=== PATIENT | male | born 1950 | race Caucasian/White ===

== ENCOUNTER 2022-01-19 12:30 | Inpatient (IN) | payer MEDICARE, BC, SELFPAY ==
[2022-01-19 13:20] VITALS: BP 127/68; PULSE 68; RESP 17; TEMP 36.2; O2SAT 96; BMI 26.6
[2022-01-19 15:30] VITALS: O2SAT 99
--- NOTE | 2022-01-19 18:03 | NURSING ---
Alert and oriented but has some delay in expressing needs. Patient requested to go to the bathroom and once in the bathroom with this nurse, patient reported, I do not have to go to the bathroom. Daughter present on admit, both parties are aware of all rehab routines.
[2022-01-19 19:48] VITALS: BP 122/74; PULSE 70; RESP 17; TEMP 36.6; O2SAT 98
[2022-01-19] MEDS: Senna/Docusate Sodium 1 Tablet 2 TABLET PO (20:40)
[2022-01-19] MEDS: Acetaminophen 500 MG Tablet PO (21:34)
[2022-01-20] MEDS: Acetaminophen 500 MG Tablet PO (06:17)
[2022-01-20] MEDS: Loratadine 10 MG Tablet PO (08:00)
[2022-01-20] MEDS: Senna/Docusate Sodium 1 Tablet 2 TABLET PO ×2 (08:00→21:02)
[2022-01-20] MEDS: Fluticasone 0.05% 1 SPRAY NASAL.SRY NASAL (08:00)
[2022-01-20] MEDS: Psyllium 1 PACKET PO (08:01)
[2022-01-20] MEDS: Lisinopril 5 MG Tablet PO (08:02)
[2022-01-20 08:52] VITALS: BP 112/63; PULSE 65; RESP 20; TEMP 36.5; O2SAT 94
[2022-01-20 08:52] LABS: Hematocrit 46.2 % (40-54); Hemoglobin 15.8 g/dL (13.0-16.5); Mean Corp Hgb Conc 34.2 g/dL (32-36); Mean Corpuscular Hgb 29.1 pg (27.0-32.0); Mean Corpuscular Volume 85.1 fL (80-94); Mean Platelet Vol. 10.6 fl (6.2-12.0); Platelet Count 198 K/mm3 (150-450); RBC Distribution Width CV 12.1 % (11.6-14.6); RBC Distribution Width SD 37.2 fl (35.1-43.9); Red Blood Count 5.43 M/mm3 (4.6-6.2)
[2022-01-20 09:00] VITALS: O2SAT 94
--- NOTE | 2022-01-20 09:03 | PCM.HP.STD ---
[facility] - General General Date of Admission: 01/19/22 Date of Service: 01/20/22 Chief Complaint: Debility due to intracranial hemorrhage. HPI Narrative GABRIELLA VOGT, is a 71 YO M with a PMH of cysts, hypertension, irritable bowel syndrome, asbestos exposure, allergic rhinitis and stroke (ischemic 2018) who presented to [facility] on 01/14/22 complaining of vision changes and an unsteady gait when he awoke that morning. He felt fine when going to bed the previous night. He woke up and noticed his vision was off but, he went back to sleep. Noncontrast CT of the brain showed acute intraventricular hemorrhage partially opacifying the right lateral ventricle and nearly completely opacifying the third ventricle, cerebral aqueduct and fourth ventricle. There was also thought to be a small L thalamus parenchymal hemorrhage. He was transported to [facility] where his NIHSS was 0 at presentation. Visual disturbances included a loss of vertical peripheral vision, diplopia and inability to look up or down. He later developed difficulty word finding and a vertical gaze palsy. He was taking and ASA at home for previous ischemic stroke in 2018. No surgery was required. He was evaluated by PT/OT and a recommendation was made for acute rehab. He was transferred to the acute inpt rehab unit at [facility] on 01/19/22 for 3 hours of therapy daily to restor function/independence at or neat his prior level of function. ECHO showed a normal LV with an EF of 62 +/- 5. There was no LVH and no diastolic dysfunction. There was no significant valvular disease. The aorta was dilated with a maximal dimension of 4.4 cm. MRI of the brain done on 01/17/22 showed subacute left medial thalamic infarct with intraparenchymal hemorrhage and intraventricular extension. There was no hydrocephalus. Does not get Flu shots and he has never had a COVID vaccine. We discussed why a COVID vaccine is telly necessary in the elderly. [facility] Medical History (Updated 01/20/22 @ 10:[address] Jonelle Bernard DO) Allergic rhinitis Former smoker Hypertension Irritable bowel Nephrolithiasis Stroke/cerebrovascular accident Home Medications acetaminophen 500 mg tablet 500 mg PO Q8H PRN Pain 01/19/22 [History Last Taken Unknown] aspirin 325 mg tablet 325 mg PO DAILY blood thinner 01/19/22 [History Last Taken Unknown] budesonide 32 mcg/actuation nasal spray 1 spray intranasal DAILY congestion 01/19/22 [History Last Taken Unknown] diclofenac sodium 1 % topical gel 1 ea topical BID pain 01/19/22 [History Last Taken Unknown] fexofenadine 180 mg tablet 180 mg PO DAILY allergies 01/19/22 [History Last Taken Unknown] lisinopril 5 mg tablet 5 mg PO DAILY bp 01/19/22 [History Last Taken Unknown] psyllium 1 packet PO DAILY constipation 01/19/22 [History Last Taken Unknown] vitamin B complex 1 tab PO DAILY vitamin 01/19/22 [History Last Taken Unknown] Allergy/AdvReac Type Severity Reaction Status Date / Time Environmental Allergies: Allergy Other Verified 01/19/22 13:27 Uncoded [seasonal] Surgical History (Updated 01/20/22 @ 09:[address] Jonelle Bernard DO) History of arthroscopy of left knee History of lithotripsy Surgical History no surgical history Social History (Updated 01/20/22 @ 10:[address] Jonelle Bernard DO) household members: other details: He lives alone housing: house number of children: 4 current occupational status: retired current occupation: pipelines laborer prior to skilled nursing Smoking Status: Former smoker how long ago did patient quit smokin years ago alcohol intake: never details: denies alcohol use substance use type: does not use ROS Constitutional Constitutional: Reports difficulty sleeping, headache(s) and other Details: Not eating well because he does not like the food. He has bags of candy in his room. ; Denies anorexia, change in weight, chills, fatigue, fever(s), night sweats or weakness Eyes Eyes: Reports change in vision and diplopia; Denies blurry vision, discharge from eye(s), eye pain or loss of vision ENT HEENT: Reports headache(s); Denies abnormal hearing, dysphagia, hearing loss, nasal congestion or sore throat Cardiovascular Cardiovascular: Reports numbness in extremities and other Details: He has decreased sensation of the R face, arm and leg since stroke in 2018 ; Denies chest pain, dyspnea on exertion, edema, lightheadedness, orthopnea, palpitations, paroxysmal nocturnal dyspnea or syncope Respiratory/Chest Respiratory/Chest: Denies cough, dyspnea, shortness of breath at rest, shortness of breath with exertion or wheezing Gastrointestinal Gastrointestinal: Reports nausea; Denies abdominal pain, constipation, diarrhea, dyspepsia, hematemesis, hematochezia or vomiting Genitourinary Genitourinary: Denies dysuria, hematuria, nocturia, urinary frequency, urinary hesitancy, urinary incontinence or urinary urgency Musculoskeletal Musculoskeletal: Denies back pain, joint pain, joint swelling or neck pain Integumentary Integumentary: Reports alopecia; Denies jaundice Neurologic Neurologic: Reports headache(s) and paresthesias; Denies confusion, disequilibrium, dizziness, focal weakness, seizures, tremor(s) or vertigo Psychiatric Psychiatric: Denies anxiety, depression, homicidal ideation or suicidal ideation Endocrine Endocrinology: Denies change in body appearance, polydipsia or polyuria Hematologic/Lymphatic Hematologic/Lymphatic: Denies easy bleeding, easy bruising or lymphadenopathy Allergic/Immunologic Allergic/Immunologic: Reports rhinitis; Denies eczemia or asthma Vital Signs Vital Signs Vital Signs: 01/19/22 13:20 01/19/22 15:30 01/19/22 19:48 Temperature 97.2 F L 97.9 F Temperature Source Oral Temporal Pulse Rate 68 70 Respiratory Rate 17 17 Blood Pressure 127/68 H 122/74 H Blood Pressure Mean 87 90 Blood Pressure Source Monitor Monitor Blood Pressure Position Semi-Fowlers Sitting Blood Pressure Location Right Arm Left Arm Pulse Ox 96 99 98 Oxygen Delivery Method Room Air Room Air Room Air 01/20/22 08:52 Temperature 97.7 F L Temperature Source Temporal Pulse Rate 65 Respiratory Rate 20 H Blood Pressure 112/63 Blood Pressure Mean 79 Blood Pressure Source Monitor Blood Pressure Position Supine Blood Pressure Location Right Arm Pulse Ox 94 Oxygen Delivery Method Room Air Weight Weight: 186 lb Body Mass Index (BMI) 26.6 Physical Exam Const alert and oriented x3 Constitutional Narrative: He is keeping the R eye closed and squinting.....he tells me that his eyes are mildly sensitive to sunlight and he is sitting by the window. He denies diplopia at the present time and tells me that it comes and goes. General Appearance: cooperative and well kempt HEENT normocephalic, head/scalp atraumatic, hearing grossly normal bilaterally and moist oral mucous membranes Face and Sinus: Negative for flattened naso-labial fold Eyes PERRL, EOMs intact bilaterally, conjunctivae normal, no scleral icterus and normal visual you by confrontation Neck supple, no JVD, nodes and no carotid bruits Chest Chest: symmetrical chest wall rise Resp normal respiratory effort, normal air movement, no use of accessory muscles and clear to auscultation bilaterally Effort and Inspection: able to speak in complete sentences Cardio regular rate, regular rhythm, S1 normal heart sound, S2 normal heart sound, no murmurs, no rub and no gallops Cardio Narrative: No ectopy GI normal to inspection, nondistended, normoactive bowel sounds, soft to palpation and non-tender GI Narrative: No guarding with palpation Extremity no clubbing, cyanosis or edema, no calf tenderness and no pedal edema Skin General Skin Exam: no breakdown Rashes: no rashes Neuro oriented x3, CN's II-XII intact bilaterally and moves all extremities Neuro Narrative: Decreased sensation on the R side since stroke in 2018 Psych mental status grossly normal, cooperative, denies hallucinations, denies homicidal ideation and denies suicidal ideation Appearance: grossly normal Attitude: calm Activity / Motor Behavior: appropriate eye contact Results Lab / Micro Data Result Diagrams: 01/20/22 08:30 01/20/22 08:30 Labs: Laboratory Results - last 24 hr 01/20/22 08:30: WBC 6.0, RBC 5.43, Hgb 15.8, Hct 46.2, MCV 85.1, MCH 29.1, MCHC 34.2, RDW Std Deviation 37.2, RDW Coeff of Analia 12.1, Plt Count 198, MPV 10.6 Assessment & Plan Assessment/Plan (1) Debility: (2) Cerebrovascular accident (CVA) of left thalamus: (3) Intracerebral hemorrhage, nontraumatic: (4) Hyponatremia: (5) Cephalgia: PLAN: Only when lying down flat. (6) Diplopia: (7) Insomnia: PLAN: Plan PLAN PT for gait stability OT for ADL's ST for evaluation Analgesics as needed Bowel protocol Fall precautions Assess for Anxiety/Depression GI prophylaxis -not necessary at this time. No history of peptic ulcer disease and he denies epigastric pain. DVT prophylaxis with Tello and ANGEL jenkins Follow up with Dr. Sumeet Serrano (PCP) and neurology following DC from IP Rehab AM lab including CMP, CBC, Mag and Phos - personally reviewed. will add a lipid panel Elevate the HOB at night to 30 degrees. Gabapentin 200 mg at 9 PM Unit Exclusion This patient is an acute care inpatient being housed in the excluded unit because of capacity issues related to the disaster or emergency.: Yes Charges/Coding Visit Charges Inpatient E&M: 91856 Init Hosp L2
[2022-01-20 09:16] LABS: ALB/GLOB Ratio 0.9 RATIO (0.9-2.4); AST(SGOT) 16 U/L (15-37); Alanine Aminotransfer ALT/SGPT 16 U/L (16-61); Albumin, Serum 3.7 g/dL (3.2-5.0); Alkaline Phosphatase 60 U/L (45-117); Anion Gap 8 (5-15); BUN 19 mg/dL (7-18); BUN/Creat Ratio 19.1 RATIO (10-20); Chloride 99 mmol/L (98-107); EST Glomerular Filtration Rate 78 mL/min (>60); Est Glom Filt Rate - Afr Amer 95 mL/min (>60); Estimated Creatinine Clearance 68.94 ml/min; Glucose 125 mg/dL (74-106); Phosphorus 3.1 mg/dL (2.5-4.9); Potassium 3.8 mmol/L (3.5-5.1); Protein, Total 7.7 g/dL (6.4-8.2); Sodium Level 135 mmol/L (136-145)
--- NOTE | 2022-01-20 09:43 | PCM.RU.PYE ---
Admission Information Primary Diagnosis:: Debility secondary to left thalamic intraparenchymal hemorrhage with extension into the ventricular system. Risk of Complications DVT: ANGEL Hose and Sequential Compression Device Bleeding: Monitor Lab Values, Nursing to Teach Precautions for anti-coagulation therapy., Wound, if applicable, to be assessed every shift. and Stroke patients assessed for lethargy or change in status. Infection: Clinical Staff to Monitor for S/S of infection: and S/S of infection include fever, redness, warmth, etc. Urinary Tract Infection: Monitor for frequency, burning, discomfort, or incontinence. and Nursing will obtain urine sample for urinalysis and C&S when ordered. Aspiration: Clinical staff will monitor for coughing, drooling, congestion., Speech will evaluate swallowing and dsyphasia. and Nursing will monitor patient swallowing during meals. Falls: Patient will be evaluated for Fall Precautions and Patient will be placed on Fall Precautions as indicated per protocol. Skin Breakdown: Nursing will assess skin daily using assessment tool. and Nursing will place on Skin Breakdown Precautions as indicated. Pain: Clinical staff will assess patient's pain level per protocol., Medications will be given, if needed, and the pain level reassessed. and Other methods: Massage, distraction, decrease stimulus, etc. used PRN. Plan of Care Patient requires physician specializing in physical medicine and rehab oversight to provide close medical supervision of rehab issues including: Pain Management, Sleep Problems, Bowel and Bladder, Medical and co-morbidity Management, DVT prophylaxis, Rehabilitation Leadership and Coordination of treatment team Patient needs Physical Therapy: For a minimum of 1 hour and At least 5 out of 7 days Patient needs Physical Therapy to improve:: Mobility, Strengthening, Transfers, Stretching, ROM, Endurance, Stairs, Gait and Balance Patient needs Occupational Therapy: For a minimum of 1 hour and At least 5 out of 7 days Patient needs Occupational Therapy to improve ADL's incl.: Eating, Grooming, Bathing, Dressing, Toileting, Toilet transfers, Community Reintegration, Higher functioning activities, Household tasks, Adaptive Equipment, Splinting and Other activities as determined Patient requires speech therapy: For a minimum of 1 hour and At least 5 out of 7 days Patient requires speech therapy for: Swallowing, Cognition, Language Skills and Compensatory Strategies Patient requires 24/ Rehabilitation Nursing for: Pain Issues, Identifying and preventing risk factors, Monitoring and reporting current medical conditions, Assisting with ambulation, transfer, and all ADL's, Teaching patients about disease process and medications, Family teaching, Providing safe environment, Bowel and Bladder Issues, Skin integrity and Medication Management Patient needs [employer]/ Case Management for: Discharge Planning, Arranging Home Equipment or Services and Family Interventions Patient needs Dietary and Nutrition Services for: Adequate Nutrition, Nutritional Supplements and Nutritional Education Goals Patient will remain: free from falls and or injury at time of discharge. Patient will perform bed mobility at: MOD I level of assist. Patient will complete transfers from bed to chair at: MOD I level of assist. Patient will ambulate: - (350 feet without an assistive device at mod I) Patient will complete upper body dressing at: MOD I level of assist. Patient will complete lower body dressing at: MOD I level of assist. Patient will complete toileting at: MOD I level of assist. Patient will perform bathing at: MOD I level of assist. Patient will complete grooming at: MOD I level of assist. Patient will complete home management skills at: MOD I level of assist. Patient will achieve: 12 stairs (With 1 handrail at mod I.) Patient will have pain level of: of 3 or less Patient's skin will: remain intact Patient will receive: adequate nutrition. Discharge Planning Pt Prognosis for Sig. Practical Improv. w/in Reasonable Time: Good Estimated Length of stay (days): 14 Anticipated D/C Destination: Home with Home Health Was Preadmission Assessment Accurate?: Yes
[2022-01-20 11:11] LABS: Cholesterol 116 mg/dL (200); High Density Lipoprotein 48 mg/dL; Triglycerides 121 mg/dL; Very Low Density Lipoprotein 24 mg/dL (5-40)
[2022-01-20] MEDS: Arthritis Pain Compound 60 CLICK TUBE TOPICAL ×2 (11:50→21:03)
[2022-01-20] MEDS: Ondansetron ODT 4 MG Tablet PO (12:08)
[2022-01-20] MEDS: Acetaminophen 500 MG Tablet 1000 MG PO ×2 (13:52→21:02)
[2022-01-20 19:49] VITALS: BP 112/77; PULSE 70; RESP 17; TEMP 36.6; O2SAT 96
[2022-01-20] MEDS: Gabapentin 100 MG Capsule 200 MG PO (21:03)
[2022-01-21] MEDS: Acetaminophen 500 MG Tablet 1000 MG PO ×3 (05:06→21:31)
[2022-01-21 07:29] VITALS: BP 125/77; PULSE 69; RESP 12; TEMP 36.9; O2SAT 94
[2022-01-21] MEDS: Senna/Docusate Sodium 1 Tablet 2 TABLET PO ×2 (07:54→21:31)
[2022-01-21] MEDS: Arthritis Pain Compound 60 CLICK TUBE TOPICAL ×2 (07:54→21:30)
[2022-01-21] MEDS: Psyllium 1 PACKET PO (07:54)
[2022-01-21] MEDS: Aspirin 325 MG Tablet PO (07:54)
[2022-01-21] MEDS: Fluticasone 0.05% 1 SPRAY NASAL.SRY NASAL (07:54)
[2022-01-21] MEDS: Lisinopril 5 MG Tablet PO (07:54)
[2022-01-21] MEDS: Loratadine 10 MG Tablet PO (07:54)
[2022-01-21 09:17] VITALS: O2SAT 99
--- NOTE | 2022-01-21 13:30 | CASEMGMT ---
Addendum entered by Noemi Christopher 01/21/22 15:40: Telephone call to patient Rashida chun. No answer. voicemail left. Original Note: Social Work Team meeting held. Patient present. Patient reports that main support person is patient daughterRashida. Patient is agreeable to this child protective services social worker contacting Rashida to updated Rashida on team meeting. Patient plans to discharge to home alone at time of discharge. Patient reports to have family and neighbors that check in with patient often and are very supportive. This child protective services social worker communicating how patient insurance benefits work and that patient will be approved a number of days on the Rehab Unit. This child protective services social worker communicating to patient to not have how many days patient is approved yet but social work will update patient when number of Medicare days is obtained, patient voiced understanding. Patient to continue with further care and treatment on the Inpatient Rehab Unit. Social Work to continue to follow as needed. Riri CORONA, DIMAS
--- NOTE | 2022-01-21 14:23 | PCM.PROGNOTE ---
Subjective Subjective Earl was seen on team rounds today. There was no family in the room or participating by phone with today's rounds. Afebrile VSS Maintaining appropriate oxygen saturation on RA Oral intake improving. He ate 75 to 100% of breakfast and lunch today. Discussed with nursing - no problems that need addressed. He did c/o a MOORE this AM and it improved with Tylenol. l Reviewed the PT/OT/ST notes - The speech therapist provided some assistance with shaving today.......he has decreased sensation in the R face. He told me yesterday that he had persistent decreased sensation on the R side after the ischemic stroke in 2018. Today he tells me that it had mostly resolved and he was almost back to where he was prior to the stroke? Medication list reviewed. Earl tells me that he slept about 5 and 1/2 hours last night before waking up with a MOORE. He feels more rested today. Better appetite today. Feels confused at times....telly in the AM. Having episodic diplopia and he is wearing the eye patch today. Overall the MOORE's are not as bad as they initially were. He has some trouble with the Left eye looking down and is not seeing what is there. He denies chest pain, calf pain, palpitations, lightheadedness, dysuria, N/B/abdominal pain, vertigo and SOB. He had a talk with his dtr last night and he has decided to get COVID and flu vaccine. Will give COVID tomorrow and FLU VAC prior to DC. Objective Data Objective Data Vital Signs: Vital Signs Temp Pulse Resp BP Pulse Ox O2 Del Method 98.4 F 69 12 125/77 H 99 Room Air 01/21/22 07:29 01/21/22 07:29 01/21/22 07:29 01/21/22 07:29 01/21/22 09:17 01/21/22 07:29 Oxygen Delivery Method Room Air Weight: 186 lb Body Mass Index (BMI) 26.6 Intake & Output: Intake and Output for Last 24 Hours 01/20/22 01/20/22 01/21/22 00:59 23:59 23:59 Output Total 850 / 850 Balance -850 / -850 Lab / Micro Data Result Diagrams: 01/20/22 08:30 01/20/22 08:30 Physical Exam Const alert and oriented x3 Constitutional Narrative: He is siting in the recliner at the bedside. The eye patch is in place on the R eye. He is more alert and interactive with staff today and appears better rested. It is difficult to get him to answer a direct question........yesterday he told me he had numbness of the R face, arm and leg since the stroke in 2018. Today he has R face numbness and the OT had to assist with shaving. When I asked him about Numbness in the arm and leg he told me he had pain in the R hip due to bursitis and did not comment on the numbness. Then he told me that the numbness had resolved? Definitely more alert today. General Appearance: cooperative and well kempt HEENT moist oral mucous membranes Eyes PERRL and no scleral icterus Resp clear to auscultation bilaterally Effort and Inspection: able to speak in complete sentences Cardio regular rate, regular rhythm, no murmurs and no gallops Cardio Narrative: No ectopy GI normal to inspection, nondistended, normoactive bowel sounds, soft to palpation and non-tender GI Narrative: No guarding with palpation Extremity no calf tenderness and no pedal edema Skin General Skin Exam: no breakdown Rashes: no rashes Neuro Neuro Narrative: He can not see vertically in the left eye when looking down. He has decreased sensation in the face. Still having intermittent diplopia. Psych Appearance: grossly normal Attitude: calm Activity / Motor Behavior: appropriate eye contact Assessment & Plan Assessment/Plan (1) Debility: (2) Cerebrovascular accident (CVA) of left thalamus: (3) Intracerebral hemorrhage, nontraumatic: (4) Hyponatremia: (5) Diplopia: (6) Vertical dissociated gaze palsy: (7) Cephalgia: PLAN: Only when lying down flat. (8) Facial paresthesia: (9) Insomnia: PLAN: Plan 1. Continue therapy 2. Continue gabapentin- increase the dose to 300 mg at 9 PM nightly.......to help with insomnia and pain. 3. Continue scheduled Tylenol Charges/Coding Visit Charges Inpatient E&M: 51556 Subs Hosp L2
[2022-01-21 15:28] VITALS: O2SAT 99
--- NOTE | 2022-01-21 18:04 | CASEMGMT ---
Social Work This mental health social worker to patient room to communicating Medicare days. Patient approved 13 days with discharge on or by 02/01/2022. Patient daughter present in room as well, Susana. Patient and Susana voiced understanding. Patient anticipates being able to discharge to home alone on 02/01/2022 or before. Active support and listening provided. Riri CORONA, MICHELLE
[2022-01-21 19:35] VITALS: BP 124/72; PULSE 83; RESP 18; TEMP 37; O2SAT 97
[2022-01-21] MEDS: Gabapentin 100 MG Capsule 200 MG PO (21:30)
[2022-01-21 22:00] VITALS: PULSE 83; RESP 16; O2SAT 96
[2022-01-22] MEDS: Acetaminophen 500 MG Tablet 1000 MG PO ×3 (05:18→21:56)
[2022-01-22 07:42] VITALS: BP 116/72; PULSE 76; RESP 16; TEMP 36.3; O2SAT 96
[2022-01-22] MEDS: Lisinopril 5 MG Tablet PO (08:05)
[2022-01-22] MEDS: Aspirin 325 MG Tablet PO (08:05)
[2022-01-22] MEDS: Loratadine 10 MG Tablet PO (08:05)
[2022-01-22] MEDS: Arthritis Pain Compound 60 CLICK TUBE TOPICAL ×2 (08:06→21:07)
[2022-01-22] MEDS: Psyllium 1 PACKET PO (08:06)
[2022-01-22] MEDS: Fluticasone 0.05% 1 SPRAY NASAL.SRY NASAL (08:06)
[2022-01-22] MEDS: Senna/Docusate Sodium 1 Tablet 2 TABLET PO ×2 (08:06→21:07)
[2022-01-22 19:18] VITALS: BP 109/63; PULSE 87; RESP 16; TEMP 37.1; O2SAT 97
[2022-01-22] MEDS: Gabapentin 100 MG Capsule 200 MG PO (20:50)
[2022-01-22 20:55] VITALS: PULSE 80; RESP 16; O2SAT 97
[2022-01-22 21:31] VITALS: BMI 26.6
[2022-01-23] MEDS: Acetaminophen 500 MG Tablet 1000 MG PO ×3 (05:56→22:05)
[2022-01-23] MEDS: Fluticasone 0.05% 1 SPRAY NASAL.SRY NASAL (08:14)
[2022-01-23] MEDS: Arthritis Pain Compound 60 CLICK TUBE TOPICAL ×2 (08:14→21:08)
[2022-01-23] MEDS: Aspirin 325 MG Tablet PO (08:14)
[2022-01-23] MEDS: Senna/Docusate Sodium 1 Tablet 2 TABLET PO ×2 (08:14→21:08)
[2022-01-23 08:15] VITALS: BP 145/88; PULSE 73; RESP 18; TEMP 36.3; O2SAT 99
[2022-01-23] MEDS: Lisinopril 5 MG Tablet PO (08:15)
[2022-01-23] MEDS: Loratadine 10 MG Tablet PO (08:15)
[2022-01-23] MEDS: Psyllium 1 PACKET PO (08:15)
--- NOTE | 2022-01-23 10:30 | PN_ITS ---
Subjective Subjective Afebrile VSS Maintaining appropriate oxygen saturation on RA Oral intake is good Discussed with nursing - no problems that need addressed Reviewed the PT/OT/ST notes. He went outside today and walked on various coker rfaces with no assistive device. Medication list reviewed. He continues to have intermittent diplopia, especially when turning his head to the left. He is sleeping much better since the gabapentin was added to his drug regimen. Cephalgia is improving and he did not complain to me but, he did admit to some cephalgia when I asked him about it. His mood is good and his affect is not as flat. He was very talkative today. The cephalgia occurs primarily when he rests his head on the bed or the back of the chair. Earl denies lightheadedness, chest pain, shortness of breath at rest, nausea/vom iting/abdominal pain, calf pain, dysuria. He told me today that he was diagnosed with asbestosis in 2002 associated with his employment. He has not had any follow-up since 2016 but prior to that was having yearly CAT scans for pulmonary nodules. He does have HERRERA. Objective Data Objective Data Vital Signs: Vital Signs Temp Pulse Resp BP Pulse Ox O2 Del Method 97.3 F L 73 18 145/88 H 99 Room Air 01/23/22 08:15 01/23/22 08:15 01/23/22 08:15 01/23/22 08:15 01/23/22 08:15 01/23/22 08:15 Oxygen Delivery Method Room Air Weight: 167 lb 1.766 oz Body Mass Index (BMI) 26.6 Intake & Output: Intake and Output for Last 24 Hours 01/21/22 01/22/22 01/23/22 23:59 23:59 23:59 Intake Total 300 / 300 Output Total 850 / 850 650 / 650 Balance -850 / -850 -350 / -350 Lab / Micro Data Result Diagrams: 01/20/22 08:30 01/20/22 08:30 Physical Exam Const alert, oriented x3 and no apparent distress Constitutional Narrative: Sitting in the recliner at the bedside and appears in no distress. I observed him walking in the harper today with no assistive device at standby assist. He walked at a good pace with a tandem gait with no loss of balance. General Appearance: cooperative HEENT HEENT Narrative: Mucous membranes are little dry. Not as dry as they were at admission. Eyes PERRL Eyes Narrative: No nystagmus. Resp normal respiratory effort and clear to auscultation bilaterally Resp Narrative: No conversational dyspnea. Effort and Inspection: Negative for tachypneic Cardio regular rate, regular rhythm, no murmurs and no gallops GI normal to inspection, nondistended, normoactive bowel sounds, soft to palpation and non-tender Extremity no calf tenderness General Extremity: Negative for edema Skin General Skin Exam: no breakdown Rashes: no rashes Assessment & Plan Assessment/Plan (1) Debility: (2) Cerebrovascular accident (CVA) of left thalamus: (3) Intracerebral hemorrhage, nontraumatic: (4) Diplopia: (5) Cephalgia: (6) Hyponatremia: (7) History of asbestosis: PLAN: Plan 1. Continue therapy 2. We discussed follow-up with pulmonary medicine because asbestosis is a risk factor for mesothelioma. He has not had a CT of the chest since 2016 and he has HERRERA. Does not think he has ever had PFT's He is agreeable to seeing either Dr. Castro or Dr. Fish in the pulmonary clinic. Will have nursing make and appt for him in the next 4-6 weeks. 3. Has not been seeing his PCP regularly and we discussed possibly changing PCP's but, he says he does not like change, even though he is not happy with his care 4. Give his first COVID vaccine and then give Flu vac in 5-7 days. Charges/Coding Visit Charges Inpatient E&M: 49140 Subs Hosp L2
[2022-01-23 10:31] VITALS: O2SAT 98
[2022-01-23 11:29] VITALS: BP 126/74; BP 145/90; BP 145/98; PULSE 70; PULSE 71; PULSE 81
[2022-01-23 11:44] VITALS: BMI 26.6
[2022-01-23 20:30] VITALS: O2SAT 96
[2022-01-23 20:43] VITALS: BP 116/77; PULSE 88; RESP 16; TEMP 36.7; O2SAT 96
[2022-01-23] MEDS: Gabapentin 100 MG Capsule 200 MG PO (21:08)
[2022-01-24] MEDS: Acetaminophen 500 MG Tablet 1000 MG PO ×3 (05:54→22:13)
[2022-01-24 07:12] VITALS: O2SAT 96
[2022-01-24] MEDS: Senna/Docusate Sodium 1 Tablet 2 TABLET PO ×2 (07:40→21:02)
[2022-01-24] MEDS: Fluticasone 0.05% 1 SPRAY NASAL.SRY NASAL (07:40)
[2022-01-24] MEDS: Psyllium 1 PACKET PO (07:40)
[2022-01-24] MEDS: Lisinopril 5 MG Tablet PO (07:40)
[2022-01-24] MEDS: Aspirin 325 MG Tablet PO (07:40)
[2022-01-24] MEDS: Loratadine 10 MG Tablet PO (07:40)
[2022-01-24] MEDS: Arthritis Pain Compound 60 CLICK TUBE TOPICAL ×2 (07:41→21:02)
--- NOTE | 2022-01-24 09:23 | NURSING ---
Dr. Bernard approved pt to use Glucosamine Chondroitin supplement from home. Order for Covid and flu vaccination received.
[2022-01-24 09:36] VITALS: BP 131/76; PULSE 79; RESP 18; TEMP 36.3; O2SAT 98
[2022-01-24 09:50] VITALS: O2SAT 99
[2022-01-24] MEDS: FLU VACC QS2022-23(6MOS UP)/PF 60 MCG/0.5 ML SYRINGE IM (12:03)
[2022-01-24 12:51] VITALS: BMI 26.6
[2022-01-24 19:23] VITALS: BP 120/69; PULSE 78; RESP 18; TEMP 37; O2SAT 94
[2022-01-24 20:05] VITALS: O2SAT 94
[2022-01-24] MEDS: Gabapentin 100 MG Capsule 200 MG PO (21:02)
[2022-01-24 22:00] VITALS: BMI 26.6
[2022-01-25] MEDS: Magnesium Hydroxide 30 ML UDC PO (04:13)
[2022-01-25] MEDS: Acetaminophen 500 MG Tablet 1000 MG PO ×3 (04:13→22:29)
[2022-01-25 07:00] VITALS: BP 107/68; PULSE 72; RESP 18; TEMP 36.6; O2SAT 96
[2022-01-25] MEDS: Arthritis Pain Compound 60 CLICK TUBE TOPICAL ×2 (07:49→22:29)
[2022-01-25] MEDS: Fluticasone 0.05% 1 SPRAY NASAL.SRY NASAL (07:49)
[2022-01-25] MEDS: Loratadine 10 MG Tablet PO (07:49)
[2022-01-25] MEDS: Aspirin 325 MG Tablet PO (07:49)
[2022-01-25] MEDS: Psyllium 1 PACKET PO (07:49)
[2022-01-25] MEDS: Senna/Docusate Sodium 1 Tablet 2 TABLET PO ×2 (07:49→22:29)
[2022-01-25] MEDS: Lisinopril 5 MG Tablet PO (07:50)
[2022-01-25 19:00] VITALS: BP 118/69; PULSE 74; RESP 18; TEMP 36.6; O2SAT 94
[2022-01-25] MEDS: Gabapentin 100 MG Capsule 200 MG PO (22:29)
[2022-01-26] MEDS: Acetaminophen 500 MG Tablet 1000 MG PO ×3 (04:42→21:18)
[2022-01-26] MEDS: Fluticasone 0.05% 1 SPRAY NASAL.SRY NASAL (08:49)
[2022-01-26] MEDS: Lisinopril 5 MG Tablet PO (08:50)
[2022-01-26] MEDS: Psyllium 1 PACKET PO (08:50)
[2022-01-26] MEDS: Loratadine 10 MG Tablet PO (08:50)
[2022-01-26] MEDS: Aspirin 325 MG Tablet PO (08:50)
[2022-01-26] MEDS: Senna/Docusate Sodium 1 Tablet 2 TABLET PO ×2 (08:50→21:18)
[2022-01-26] MEDS: Arthritis Pain Compound 60 CLICK TUBE TOPICAL ×2 (08:51→21:17)
[2022-01-26 08:58] VITALS: BP 110/71; PULSE 74; RESP 16; TEMP 37.3; O2SAT 97
--- NOTE | 2022-01-26 12:37 | NS ---
Clarified w/ pt- pt does not drink milk. Will eat other lactose containing foods with lactaid pills. Diet order adjusted. Leonel Valencia MS, RDN, LD
[2022-01-26 17:00] VITALS: BMI 26.6
[2022-01-26 19:33] VITALS: BP 103/83; PULSE 80; RESP 15; TEMP 36.8; O2SAT 97
[2022-01-26 20:21] VITALS: BMI 26.6
[2022-01-26] MEDS: Gabapentin 100 MG Capsule 200 MG PO (21:11)
[2022-01-26 21:23] VITALS: RESP 16; O2SAT 97
[2022-01-27] MEDS: Acetaminophen 500 MG Tablet 1000 MG PO ×3 (05:34→21:05)
[2022-01-27 07:48] VITALS: BP 122/78; PULSE 76; RESP 15; TEMP 36.2; O2SAT 96
[2022-01-27] MEDS: Psyllium 1 PACKET PO (07:57)
[2022-01-27] MEDS: Arthritis Pain Compound 60 CLICK TUBE TOPICAL ×2 (07:57→21:04)
[2022-01-27] MEDS: Fluticasone 0.05% 1 SPRAY NASAL.SRY NASAL (07:57)
[2022-01-27] MEDS: Loratadine 10 MG Tablet PO (07:58)
[2022-01-27] MEDS: Lisinopril 5 MG Tablet PO (07:58)
[2022-01-27] MEDS: Aspirin 325 MG Tablet PO (07:58)
[2022-01-27] MEDS: Senna/Docusate Sodium 1 Tablet 2 TABLET PO ×2 (07:59→21:04)
[2022-01-27 17:00] VITALS: BMI 26.6
[2022-01-27 19:26] VITALS: BP 99/62; PULSE 74; RESP 18; TEMP 36.7; O2SAT 95
[2022-01-27 20:32] VITALS: BMI 26.6
[2022-01-27 20:33] VITALS: PULSE 74; RESP 16; O2SAT 98
[2022-01-27] MEDS: Gabapentin 100 MG Capsule 200 MG PO (21:04)
[2022-01-27 21:13] VITALS: BP 136/81; PULSE 71
--- NOTE | 2022-01-27 21:15 | NURSING ---
BP at shift change was 99/62 and HR of 74. Fluids were encouraged and BP retaken a couple hours later. BP 136/81 and HR of 71.
[2022-01-28] MEDS: Acetaminophen 500 MG Tablet 1000 MG PO ×3 (05:29→22:23)
[2022-01-28] MEDS: Psyllium 1 PACKET PO (08:06)
[2022-01-28] MEDS: Arthritis Pain Compound 60 CLICK TUBE TOPICAL ×2 (08:06→22:23)
[2022-01-28] MEDS: Fluticasone 0.05% 1 SPRAY NASAL.SRY NASAL (08:07)
[2022-01-28] MEDS: Aspirin 325 MG Tablet PO (08:08)
[2022-01-28] MEDS: Loratadine 10 MG Tablet PO (08:08)
[2022-01-28] MEDS: Senna/Docusate Sodium 1 Tablet 2 TABLET PO (08:08)
[2022-01-28] MEDS: Lisinopril 5 MG Tablet PO (08:08)
[2022-01-28 09:03] VITALS: BP 126/72; PULSE 85; RESP 16; TEMP 36.3; O2SAT 98
--- NOTE | 2022-01-28 11:48 | PN_ITS ---
Subjective Subjective Earl he was seen on team rounds today. His dtr Bennett participated by phone. Afebrile VSS-blood pressure is well controlled. Heart rate is within normal limits. Maintaining appropriate oxygen saturation on RA Discussed with nursing - no problems that need addressed Reviewed the PT/OT/ST notes. He is doing well with speech therapy but needs continued therapy for short-term memory loss and recall. He has asce nded/descended 20 steps with 1 handrail at contact-guard assist/standby assist. He is ambulating on various surfaces at standby assist with no assistive device. Medication list reviewed. Still with intermittent diplopia. Doing very well with therapy, all disciplines. Denies lightheadedness, chest pain, shortness of breath, palpitations, N/V/abdominal pain, dysuria, calf pain. The headaches are improving and the diplopia is less. Earl has an appt with neurology for follow up on the and the therapists feel he is safe to DC on the to attend that appt. Objective Data Objective Data Vital Signs: Vital Signs Temp Pulse Resp BP Pulse Ox O2 Del Method 97.3 F L 85 16 126/72 H 98 Room Air 01/28/22 09:03 01/28/22 09:03 01/28/22 09:03 01/28/22 09:03 01/28/22 09:03 01/28/22 09:03 Oxygen Delivery Method Room Air Weight: 167 lb 1.766 oz Body Mass Index (BMI) 26.6 Intake & Output: Intake and Output for Last 24 Hours 01/26/22 01/27/22 01/28/22 23:59 23:59 23:59 Intake Total 450 / 450 700 / 700 Output Total 350 / 350 800 / 800 Balance 100 / 100 -100 / -100 Lab / Micro Data Result Diagrams: 01/20/22 08:30 01/20/22 08:30 Physical Exam Const alert, oriented x3 and no apparent distress Constitutional Narrative: He is wearing an eye patch to help with the diplopia while he is doing therapy. General Appearance: cooperative Eyes PERRL and EOMs intact bilaterally Resp normal respiratory effort and clear to auscultation bilaterally Cardio regular rate, regular rhythm and no gallops GI normal to inspection, nondistended, normoactive bowel sounds, soft to palpation and non-tender Extremity no calf tenderness General Extremity: Negative for edema Skin General Skin Exam: no breakdown Rashes: no rashes Assessment & Plan Assessment/Plan (1) Debility: PLAN: Continue therapy. Plan on discharge 02/01/2020 2 in the AM so that he may attend his doctor's appointment at 1230. (2) Cerebrovascular accident (CVA) of left thalamus: PLAN: Plan a 30-day event monitor at discharge to evaluate for paroxysmal atrial fibrillation. (3) Intracerebral hemorrhage, nontraumatic: PLAN: Etiology? (4) Cephalgia: PLAN: Improving and controlled with Tylenol. (5) Diplopia: PLAN: This is less and less now but he is still wearing the eye patch when doing physical therapy to prevent double vision and improve his performance in therapy. (6) Hyponatremia: PLAN: Recheck a BMP tomorrow (7) Facial paresthesia: (8) Vertical dissociated gaze palsy: PLAN: This is resolved (9) History of asbestosis: PLAN: Nursing attempting to schedule an appointment with either Dr. Castro or Dr. Fish in 4 to 6 weeks to evaluate for restrictive lung disease secondary to asbestosis.. (10) Insomnia: PLAN: Gabapentin has been very successful in helping with the headache as well as the insomnia and he would like to continue this at discharge. PLAN: Plan 1. BMP in the AM. Charges/Coding Visit Charges Inpatient E&M: 23213 Subs Hosp L2
--- NOTE | 2022-01-28 13:14 | CASEMGMT ---
Addendum entered by Susan Vaughan 01/29/22 11:10: [facility]. Appointments made. Updated pt. Original Note: Social Work IDT met patient and dtr via conference call for Team meeting. Discussed patient's progress in PT/OT/ST/SN. Educated to Medicare approval 13 days with DC 02/01. Pt is progressing very well. Pt has f/u appt on 01/31 and IDT agreeable to DC prior to that appt. Educated to [facility] vs OP therapy. IDT recommending OP PT/ST. Family can transport and prefer [facility]. SW to f/u on that referral. No DME needs. Dtr to transport. Plan: DC home 01/31, outpatient PT/ST CJ SinghW
[2022-01-28 15:47] VITALS: BMI 26.6
[2022-01-28 20:14] VITALS: BP 114/72; PULSE 78; RESP 17; TEMP 36.8; O2SAT 98
[2022-01-28 20:45] VITALS: O2SAT 98
[2022-01-28] MEDS: Gabapentin 100 MG Capsule 200 MG PO (21:17)
[2022-01-29 06:10] LABS: Anion Gap 6 (5-15); BUN 21 mg/dL (7-18); BUN/Creat Ratio 18.3 RATIO (10-20); Calcium,Total 8.7 mg/dL (8.5-10.1); Chloride 104 mmol/L (98-107); Creatinine, Serum 1.15 mg/dL (0.70-1.30); EST Glomerular Filtration Rate 66 mL/min (>60); Est Glom Filt Rate - Afr Amer 80 mL/min (>60); Estimated Creatinine Clearance 59.95 ml/min; Glucose 92 mg/dL (74-106); Potassium 4.7 mmol/L (3.5-5.1); Sodium Level 138 mmol/L (136-145)
[2022-01-29] MEDS: Acetaminophen 500 MG Tablet 1000 MG PO ×3 (06:15→22:05)
[2022-01-29 07:59] VITALS: BP 108/72; PULSE 70; RESP 16; TEMP 36.7; O2SAT 96
[2022-01-29] MEDS: Fluticasone 0.05% 1 SPRAY NASAL.SRY NASAL (08:11)
[2022-01-29] MEDS: Aspirin 325 MG Tablet PO (08:11)
[2022-01-29] MEDS: Lisinopril 5 MG Tablet PO (08:11)
[2022-01-29] MEDS: Arthritis Pain Compound 60 CLICK TUBE TOPICAL ×2 (08:13→21:12)
[2022-01-29] MEDS: Loratadine 10 MG Tablet PO (08:13)
[2022-01-29] MEDS: prednisoLONE eye drops (5 mL) 1 DROP OPTH.BTL 1 DRP RIGHT EYE ×2 (13:37→21:12)
[2022-01-29 14:31] VITALS: BMI 26.6
--- NOTE | 2022-01-29 16:05 | CASEMGMT ---
Social Work Completed advanced directives with pt. Original and copy provided to pt. Copies placed on chart. Susan Vaughan, DIESEL DIN[employer] ENGINEER ANIMAL CONTROL OFFICER
[2022-01-29 20:42] VITALS: BP 128/73; PULSE 84; RESP 18; TEMP 36.9; O2SAT 99
[2022-01-29] MEDS: Gabapentin 100 MG Capsule 200 MG PO (21:09)
[2022-01-29] MEDS: Senna/Docusate Sodium 1 Tablet 2 TABLET PO (21:12)
[2022-01-29 21:15] VITALS: O2SAT 99
[2022-01-30] MEDS: Acetaminophen 500 MG Tablet 1000 MG PO ×3 (06:02→22:00)
[2022-01-30 07:35] VITALS: BP 107/66; PULSE 79; RESP 16; TEMP 36.4; O2SAT 96
[2022-01-30] MEDS: Arthritis Pain Compound 60 CLICK TUBE TOPICAL ×2 (09:55→22:01)
[2022-01-30] MEDS: Fluticasone 0.05% 1 SPRAY NASAL.SRY NASAL (09:55)
[2022-01-30] MEDS: Loratadine 10 MG Tablet PO (09:56)
[2022-01-30] MEDS: Senna/Docusate Sodium 1 Tablet 2 TABLET PO ×2 (09:56→22:01)
[2022-01-30] MEDS: Aspirin 325 MG Tablet PO (09:56)
[2022-01-30] MEDS: Lisinopril 5 MG Tablet PO (09:56)
[2022-01-30] MEDS: prednisoLONE eye drops (5 mL) 1 DROP OPTH.BTL 1 DRP RIGHT EYE ×2 (09:56→22:01)
[2022-01-30] MEDS: Psyllium 1 PACKET PO (09:56)
--- NOTE | 2022-01-30 12:48 | DCINST_ITS ---
Discharge Instructions Diet Discharge Diet: - (Low-salt/low-fat) Activity Discharge Activity: May Not Drive (Until released to drive by the neurologist or his PCP.), May Shower and - (Not using an assistive device at DC from rehab. ) Weight Bearing Status: Full weight bearing Dressing / Incision Call your doctor if you observe: Fever of 101 or Higher, Inability to urinate, Shortness of breath, Dizziness, Fainting spells, Swelling in the ankles, Chest pain, Increased palpitations (irregular heartbeat) and Calf discomfort Follow Up Care Please Follow Up With: PCP When: 7- 10 days post DC from rehab. Test Results: Test results from this visit will be discussed in further detail at your follow- up appointment, if applicable. Pending Tests Upon Discharge: none Discharge Plan Admission Admit Date/Time: 01/19/22 12:30 Primary Reason for Your Visit: Debility due to stroke Attending Provider: Jonelle Bernard Instructions Patient Instructions: Discharge Instructions for Stroke Additional Instructions / Restrictions: 1. There are 2 types of strokes. The least common stroke is a hemorrhagic stroke where there is bleeding in the brain. These types of strokes can be caused by aneurysms. The most common kind of stroke is a ischemic stroke. An ischemic stroke is caused by an occlusion of an artery in your brain and then no blood or oxygen gets past this point and that portion of the brain dies. The occlusion can be caused by a blood clot or by atherosclerosis. Blood clots can be associated with a problem with the rhythm of your heart called atrial fibrillation. Blood clots can also be caused by a hypercoagulable blood disorder. This means your blood clots more easily than it should. I am giving you an order to get a 30 day event monitor which is a device that records the heart rhythm continuously for 30 days. You will be sent this device in the mail along with instructions on how to put it on. After the 30 days the blanket cutter hand will review the results and then you will have an appt with the blanket cutter hand to discuss the results. Hypercoagulable blood disorders can be checked by drawing your blood. You should discuss this with Dr. Puentes and he can order these lab tests for you. 2. You LDL, not on a statin, is 44. The recommendations after a stroke is to keep the LDL under 70 and so you are not on a statin at this time. You will need to follow up with a neurologist in the future and he may want to place you on a statin. 3. Your short term memory was affected by the stroke. It would be good for you to do puzzles, play word games, read the newspaper and books to help improve your memory. You also need continued therapy with a speech therapist to continue working toward improving your memory and developing strategies to help you remember things that are hard for you. 4. You are on a medication called Lisinopril to control BP. The goal for your blood pressure is to keep it under 130/80 and this will decrease your risk for other strokes going forward. 5. Regular exercise also decreases stroke risk. Walking is good exercise. You shoould aim for 30 minutes of sustained exercise a day. 6. STROKE symptoms: 1. Sudden numbness or weakness of the face, arm or leg especially if on one side of the body only 2. Sudden confusion, trouble speaking or understanding speech 3. Sudden trouble seeing in 1 eye or both eyes 4. Sudden trouble walking, dizziness, loss of balance or incoordination 5. Sudden severe headache with no known cause Be aware of all the stroke symptoms. IF you have any of these symptoms call 911 and go to an ER.......don't drive yourself or have someone else drive you to the ED. There are clot busting drugs that can be given to minimize the severity of the deficits from a stroke BUT, you must have the drug before 4 hours is up or it will not be given to you. The longer you wait to go to the ER the more brain damage you will have from a stroke. 7. An appt has been made for you to follow up with a lung specialist about the asbestosis. Asbestosis can cause a kind of cancer called Mesothelioma. Cancer makes your bleed clot easily. You will need to regular follow up for asbestosis. 8. IF you have any questions after you leave rehab please do not hesitate to call me. OFFICE: [phone] CELL: [phone] It has been a pleasure working with you Earl and if you ever need our help in rehab again we would be happy to take you back. Discharge Orders/Prescriptions Prescriptions: New acetaminophen 500 mg Tablet 1,000 mg PO TID Qty: 0 0RF Rx Instructions: Take 3 times a day until headaches resolve gabapentin 100 mg Capsule 200 mg PO 2100 Qty: 60 0RF glucosamine-chondroitin [Cosamin DS] 500-400 mg Tablet 2 ea PO DAILY Qty: 0 0RF Continued budesonide 32 mcg/actuation Candia,Non-Aerosol 1 spray INTRANASAL DAILY Rx Instructions: administer into each nostril fexofenadine 180 mg Tablet 180 mg PO DAILY diclofenac sodium 1 % Gel 1 ea TOPICAL BID aspirin 325 mg Tablet 325 mg PO DAILY Metamucil Packet 1 packet PO DAILY Rx Instructions: mix into at least 8 oz of water or juice before administering vitamin B complex Tablet 1 tab PO DAILY lisinopril 5 mg Tablet 5 mg PO DAILY Qty: 30 0RF Discontinued acetaminophen 500 mg Tablet 500 mg PO Q8H PRN (Reason: Pain) Referrals / Follow Up: [facility] [Other] - 02/06/22 3:30 pm () [facility] - 02/05/22 10:30 am Andrzej Fish MD [Med Staff - Active Staff] - 02/19/22 7:00 am (you will see Dr Garcia Referral for Asbestosis and SOB) Haresh Rose MD [Med Staff - Active Staff] - 03/27/22 1:00 pm Letty Puentes MD [Med Staff - Demolition Expert] - Yefri Almanzar MD [Non-Staff] - 02/18/22 3:00 pm Disposition Disposition (needs filled in before D/C Order can be placed): Home, Self Care
[2022-01-30 14:44] VITALS: BMI 26.6
[2022-01-30 19:40] VITALS: BP 115/67; PULSE 82; RESP 18; TEMP 36.6; O2SAT 95
[2022-01-30] MEDS: Magnesium Hydroxide 30 ML UDC PO (22:00)
[2022-01-30] MEDS: Gabapentin 100 MG Capsule 200 MG PO (22:01)
[2022-01-31] MEDS: Acetaminophen 500 MG Tablet 1000 MG PO (06:06)
[2022-01-31 07:34] VITALS: BP 111/68; PULSE 74; RESP 12; TEMP 36.4; O2SAT 94
[2022-01-31] MEDS: Fluticasone 0.05% 1 SPRAY NASAL.SRY NASAL (08:02)
[2022-01-31] MEDS: Loratadine 10 MG Tablet PO (08:03)
[2022-01-31] MEDS: Arthritis Pain Compound 60 CLICK TUBE TOPICAL (08:03)
[2022-01-31] MEDS: Aspirin 325 MG Tablet PO (08:03)
[2022-01-31] MEDS: Psyllium 1 PACKET PO (08:03)
[2022-01-31] MEDS: Senna/Docusate Sodium 1 Tablet 2 TABLET PO (08:03)
[2022-01-31] MEDS: Lisinopril 5 MG Tablet PO (08:03)
[2022-01-31] MEDS: prednisoLONE eye drops (5 mL) 1 DROP OPTH.BTL 1 DRP RIGHT EYE (08:03)
--- NOTE | 2022-01-31 08:54 | EX.DISCHREH ---
Providers Date of Admission: 01/19/22 Date of Discharge: 01/31/22 Primary Care Physician: Dr. Letty Puentes Reason For Visit: Ischemic stroke with hemorrhage Diagnosis Discharge Diagnosis (1) Debility: Status: Acute Code(s): R53.81 - Other malaise Plan: OP PT/OT post DC. (2) Cerebrovascular accident (CVA) of left thalamus: Status: Acute Code(s): I63.81 - Other cerebral infarction due to occlusion or stenosis of small artery Plan: Plan a 30-day event monitor at discharge to evaluate for paroxysmal atrial fibrillation. Ischemic. (3) Intracerebral hemorrhage, nontraumatic: Status: Acute Code(s): I61.9 - Nontraumatic intracerebral hemorrhage, unspecified Plan: Etiology? (4) Cephalgia: Status: Acute Code(s): R51.9 - Headache, unspecified Plan: Improving and controlled with Tylenol. (5) Diplopia: Status: Acute Code(s): H53.2 - Diplopia Plan: This is less and less now but he is still wearing the eye patch when doing physical therapy to prevent double vision and improve his performance in therapy. (6) Hyponatremia: Status: Resolved Code(s): E87.1 - Hypo-osmolality and hyponatremia (7) Facial paresthesia: Status: Acute Code(s): R20.2 - Paresthesia of skin (8) Vertical dissociated gaze palsy: Status: Acute Code(s): H51.0 - Palsy (spasm) of conjugate gaze Plan: This is resolved (9) History of asbestosis: Status: Acute Code(s): Z87.09 - Personal history of other diseases of the respiratory system Plan: Appt scheduled for him to follow up with pulmonary medicine. (10) Insomnia: Status: Acute Code(s): G47.00 - Insomnia, unspecified Plan: Gabapentin has been very successful in helping with the headache as well as the insomnia and will continue this at discharge. Medications at Discharge Home Medications aspirin 325 mg tablet 325 mg PO DAILY blood thinner 01/19/22 budesonide 32 mcg/actuation nasal spray 1 spray intranasal DAILY congestion 01/19/22 diclofenac sodium 1 % topical gel 1 ea topical BID pain 01/19/22 fexofenadine 180 mg tablet 180 mg PO DAILY allergies 01/19/22 psyllium 1 packet PO DAILY constipation 01/19/22 vitamin B complex 1 tab PO DAILY vitamin 01/19/22 acetaminophen 500 mg tablet 1,000 mg PO TID #0 tabs 01/30/22 gabapentin 100 mg capsule 200 mg PO 2100 #60 caps 01/30/22 glucosamine-chondroitin 500 mg-400 mg tablet (Cosamin DS) 2 ea PO DAILY #0 tabs 01/30/22 lisinopril 5 mg tablet 5 mg PO DAILY bp #30 tabs 01/30/22 Hospital Course Operations None Procedures None Summary of Care Provided Minutes Spent on Discharge: 35 Hospital Course: EARL VOGT, is a 71 YO M? with a PMH of cysts, hypertension, irritable bowel syndrome, asbestos exposure, allergic rhinitis and stroke (ischemic 2018) who presented to [facility] on 01/14/22 complaining of vision changes and an unsteady gait when he awoke that morning.? He felt fine when going to bed the previous night.? He woke up and noticed his vision was off but, he went back to sleep.? Noncontrast CT of the brain showed acute intraventricular hemorrhage partially opacifying the right lateral ventricle and nearly completely opacifying the third ventricle, cerebral aqueduct and fourth ventricle. There was also thought to be a small L thalamus parenchymal hemorrhage.? He was transported to [facility] where his NIHSS was 0 at presentation.? Visual disturbances included a loss of vertical peripheral vision, diplopia and inability to look up or down. He later developed difficulty word finding and a vertical gaze palsy. ? He was taking anASA at home for previous ischemic stroke in 2018 but, may have missed some doses.? No surgery was required.? He was evaluated by PT/OT and a recommendation was made for acute rehab.? He was transferred to the acute inpt rehab unit at [facility] on 01/19/22 for 3 hours of therapy daily to restore function/independence at or neat his prior level of function.? Lab work done in rehab included a lipid panel which showed a total cholesterol of 116, LDL of 44, HDL of 48 and he was on no statins. Sodium was initially mildly decreased at 135 but this resolved and his sodium prior to discharge was 138. Blood pressure was well controlled and consistently less than 130/80 on 5 mg of lisinopril daily. Earl did quite well in therapy. Prior to discharge Earl was able to do 13 sit to stands in 30 seconds without using his upper extremities which was up from 8 sit to stands in 30 seconds at admission. He was able to ascend/descend 20 steps with 1 handrail at contact-guard assist. He was ambulating up to 500 feet without an assistive device independently on various surfaces at the time of discharge. He was independent with all ADLs. He was able to complete high-level reasoning and executive functioning tasks given minimal verbal prompts with 90% accuracy. He continues to struggle with working memory and mental manipulation. Additional therapy was recommended as an outpatient. I did not detect any irregular heart rhythms when I examined him throughout his stay in rehab. He has now had at least 2 strokes. He was discharged with a RX for a 30 day event monitor and will follow up with [facility] to discuss the results at the conclusion of the monitoring period. He has an appt to follow up with Dr. Yefri Almanzar from neurology. I recommended Earl discuss a hypercoagulable W/U with his PCP, Dr. Letty Puentes, at his first office visit. An appt was also made for Earl to follow-up with pulmonary medicine to monitor for progression of asbestosis and possible transformation to mesothelioma. He has not had a CT chest for at least 5-6 years. Earl was not discharged on a statin because his baseline LDL is only 44. He will continue to take 325 mg of ASA daily. Physical Exam Const alert, oriented x3 and no apparent distress Constitutional Narrative: He is wearing an eye patch to help with the diplopia while he is doing therapy. General Appearance: cooperative, well kempt and well developed HEENT normocephalic, head/scalp atraumatic, hearing grossly normal bilaterally and moist oral mucous membranes Eyes PERRL, EOMs intact bilaterally, conjunctivae normal, no scleral icterus and normal visual you by confrontation Eyes Narrative: No nystagmus. Neck supple, no JVD, nodes and no carotid bruits Chest Chest: symmetrical chest wall rise Resp normal respiratory effort, no use of accessory muscles and clear to auscultation bilaterally Resp Narrative: No conversational dyspnea. BS's are mildly decreased. Effort and Inspection: able to speak in complete sentences; Negative for tachypneic Cardio regular rate, regular rhythm, S1 normal heart sound, S2 normal heart sound, no murmurs, no rub and no gallops Cardio Narrative: No ectopy GI normal to inspection, nondistended, normoactive bowel sounds, soft to palpation and non-tender GI Narrative: No guarding with palpation Extremity no clubbing, cyanosis or edema and no calf tenderness Skin General Skin Exam: no breakdown Rashes: no rashes Neuro Neuro Narrative: See the NIHSS section Psych mental status grossly normal, cooperative, denies hallucinations, denies homicidal ideation and denies suicidal ideation Appearance: grossly normal Attitude: calm Activity / Motor Behavior: appropriate eye contact Weight / BMI Weight Weight: 169 lb 1.513 oz Body Mass Index (BMI) 26.6 ABG / Lab / Microbiology Data Result Diagrams: 01/20/22 08:30 01/29/22 05:30 Indicators for Scoring Admitted with or Primary Diagnosis of CVA/Stroke: Yes Hx of CVA/Stroke: Yes Modified Browning Score MRS Score at time of Evaluation: 2-Slight disability (memory is impaired ) NIHSS NIHSS 1a. Level of Consciousness: Alert; keenly responsive 1b. LOC Questions: Answers BOTH questions correctly. 1c. LOC Commands: Performs both tasks correctly. 2. Best Gaze: Normal 3. Visual: No visual loss 4. Facial Palsy: Normal symmetrical movements 5a. Left Arm: No drift; arm holds 90 (or 45) degrees for full 10 seconds 5b. Right Arm: No drift; arm holds 90 (or 45) degrees for full 10 seconds 6a. Left Leg: No drift; leg holds 30-degree position for full 5 seconds 6b. Right Leg: No drift; leg holds 30-degree position for full 5 seconds 7. Limb Ataxia: Absent 8. Sensory: [id number] sensory loss; (Decreased sensation on the R side......this is likely residual from CVA in 2018) 9. Best Language: No aphasia; normal 10. Dysarthria: Normal 11. Extinction and Inattention: No abnormality Total: 1 Stroke Questions Stroke Team Activated: No (he is a rehab unit with completed CVA) D/C Instructions Discharge Diet: - (Low-salt/low-fat) Weight Bearing Status: Full weight bearing Call your doctor if you observe: Fever of 101 or Higher, Inability to urinate, Shortness of breath, Dizziness, Fainting spells, Swelling in the ankles, Chest pain, Increased palpitations (irregular heartbeat) and Calf discomfort Pending Tests Upon Discharge: none Please Follow Up With: PCP When: 7- 10 days post DC from rehab. Meaningful Use Info Meaningful Use Diagnoses (Choose all that apply): Hemorrhagic CVA and Ischemic CVA CVA Therapy Assessed for PT,OT and/or ST?: Yes Ischemic Stroke Antithrombotic order at d/c?: Yes Dx of Atrial fib/flutter?: No Anticoagulant at discharge?: No Reason anticoagulant not ordered: Treatment not Indicated (He had a ischemic stroke in the left thalamus with hemorrhage) Statins at discharge?: No Reason Statin not ordered: Treatment not Indicated (baseline LDL is 44 with an HDL of 48) Primary Dx Acute Ischemic CVA?: Yes IV tPA ordered during stay?: No Reason IV t-PA not ordered: Treatment not Indicated Discharge Plan Admission Admit Date/Time: 01/19/22 12:30 Primary Reason for Your Visit: Debility due to stroke Attending Provider: Jonelle Bernard Instructions Patient Instructions: Discharge Instructions for Stroke Additional Instructions / Restrictions: 1. There are 2 types of strokes. The least common stroke is a hemorrhagic stroke where there is bleeding in the brain. These types of strokes can be caused by aneurysms. The most common kind of stroke is a ischemic stroke. An ischemic stroke is caused by an occlusion of an artery in your brain and then no blood or oxygen gets past this point and that portion of the brain dies. The occlusion can be caused by a blood clot or by atherosclerosis. Blood clots can be associated with a problem with the rhythm of your heart called atrial fibrillation. Blood clots can also be caused by a hypercoagulable blood disorder. This means your blood clots more easily than it should. I am giving you an order to get a 30 day event monitor which is a device that records the heart rhythm continuously for 30 days. You will be sent this device in the mail along with instructions on how to put it on. After the 30 days the tankroom worker will review the results and then you will have an appt with the tankroom worker to discuss the results. Hypercoagulable blood disorders can be checked by drawing your blood. You should discuss this with Dr. Puentes and he can order these lab tests for you. 2. You LDL, not on a statin, is 44. The recommendations after a stroke is to keep the LDL under 70 and so you are not on a statin at this time. You will need to follow up with a neurologist in the future and he may want to place you on a statin. 3. Your short term memory was affected by the stroke. It would be good for you to do puzzles, play word games, read the newspaper and books to help improve your memory. You also need continued therapy with a speech therapist to continue working toward improving your memory and developing strategies to help you remember things that are hard for you. 4. You are on a medication called Lisinopril to control BP. The goal for your blood pressure is to keep it under 130/80 and this will decrease your risk for other strokes going forward. 5. Regular exercise also decreases stroke risk. Walking is good exercise. You shoould aim for 30 minutes of sustained exercise a day. 6. STROKE symptoms: 1. Sudden numbness or weakness of the face, arm or leg especially if on one side of the body only 2. Sudden confusion, trouble speaking or understanding speech 3. Sudden trouble seeing in 1 eye or both eyes 4. Sudden trouble walking, dizziness, loss of balance or incoordination 5. Sudden severe headache with no known cause Be aware of all the stroke symptoms. IF you have any of these symptoms call 911 and go to an ER.......don't drive yourself or have someone else drive you to the ED. There are clot busting drugs that can be given to minimize the severity of the deficits from a stroke BUT, you must have the drug before 4 hours is up or it will not be given to you. The longer you wait to go to the ER the more brain damage you will have from a stroke. 7. An appt has been made for you to follow up with a lung specialist about the asbestosis. Asbestosis can cause a kind of cancer called Mesothelioma. Cancer makes your bleed clot easily. You will need to regular follow up for asbestosis. 8. IF you have any questions after you leave rehab please do not hesitate to call me. OFFICE: [phone] CELL: [phone] It has been a pleasure working with you Earl and if you ever need our help in rehab again we would be happy to take you back. Discharge Orders/Prescriptions Prescriptions: New acetaminophen 500 mg Tablet 1,000 mg PO TID Qty: 0 0RF Rx Instructions: Take 3 times a day until headaches resolve gabapentin 100 mg Capsule 200 mg PO 2100 Qty: 60 0RF glucosamine-chondroitin [Cosamin DS] 500-400 mg Tablet 2 ea PO DAILY Qty: 0 0RF Continued budesonide 32 mcg/actuation [place],Non-Aerosol 1 spray INTRANASAL DAILY Rx Instructions: administer into each nostril fexofenadine 180 mg Tablet 180 mg PO DAILY diclofenac sodium 1 % Gel 1 ea TOPICAL BID aspirin 325 mg Tablet 325 mg PO DAILY Metamucil Packet 1 packet PO DAILY Rx Instructions: mix into at least 8 oz of water or juice before administering vitamin B complex Tablet 1 tab PO DAILY lisinopril 5 mg Tablet 5 mg PO DAILY Qty: 30 0RF Discontinued acetaminophen 500 mg Tablet 500 mg PO Q8H PRN (Reason: Pain) Referrals / Follow Up: [facility] [Other] - 02/06/22 3:30 pm () [facility] - 02/05/22 10:30 am Andrzej Fish MD [Med Staff - Active Staff] - 02/19/22 7:00 am (you will see Dr Garcia Referral for Asbestosis and SOB) Haresh Rose MD [Med Staff - Active Staff] - 03/27/22 1:00 pm Letty Puentes MD [Med Staff - Weight Engineer] - Yefri Almanzar MD [Non-Staff] - 02/18/22 3:00 pm Disposition Disposition (needs filled in before D/C Order can be placed): Home, Self Care Charges/Coding Visit Charges Inpatient E&M: 08358 Disch Hosp
== END 2022-01-31 10:20 | disposition home or self-care (01) | DRG 57 ==
PROVIDERS: Admitting Provider Internal Medicine; Visit Provider Internal Medicine
DX: I69.398 Other sequelae of cerebral infarction (principal); E87.1 Hypo-osmolality and hyponatremia; H53.2 Diplopia; I10 Essential (primary) hypertension; I69.328 Other speech and language deficits following cerebral infarction; I69.392 Facial weakness following cerebral infarction; Z87.891 Personal history of nicotine dependence; G47.00 Insomnia, unspecified; Z79.82 Long term (current) use of aspirin; Z79.899 Other long term (current) drug therapy; Z23 Encounter for immunization; R20.8 Other disturbances of skin sensation; Z77.090 Contact with and (suspected) exposure to asbestos
CPT/HCPCS: 36415; 80048; 80053; 80061; 83735; 84100; 85027; 92507; 92523; 97110; 97112; 97116; 97129; 97130; 97162; 97165; 97530; 97535; 97802; 97803; 99251; G0008; 90686; G0463

== ENCOUNTER → 2022-02-27 | Outpatient (CLI) | payer MEDICARE, BC, SELFPAY ==
--- NOTE | 2022-02-28 08:10 | PFT ---
INTRODUCTION: The patient is a 71-year-old male that presents for pulmonary function studies secondary to a diagnosis of dyspnea. Respiratory therapy reported good patient effort. Bronchodilators were used during testing. INTERPRETATION: Forced expiration spirometry demonstrates no evidence of a large airways obstructive ventilatory defect. There was no significant response to aerosolized bronchodilators. Spirograms are of good quality and plateau normally. Body plethysmography was performed and reveals lung volumes to be within normal limits. Diffusing capacity by single breath CO is likewise within normal limits. IMPRESSION: Grossly normal pulmonary function studies.
== END | disposition home or self-care (01) ==
LOC: PSN 12:48
PROVIDERS: PCP Internal Medicine; Referring Provider Internal Medicine; Visit Provider Internal Medicine
DX: R06.09 Other forms of dyspnea (principal); J94.9 Pleural condition, unspecified
CPT/HCPCS: 94060; 94726; 94729

== ENCOUNTER → 2022-03-14 | Outpatient (CLI) | payer MEDICARE, BC, SELFPAY ==
--- NOTE | 2022-03-14 14:50 | CT_ITS ---
STUDY: LOW DOSE CT LUNG CANCER SCREENING REASON FOR EXAM: Male, 71 years old. Former smoker. 34 pack-year history chronic 1997. History of asbestos exposure with pleural thickening. Shortness of breath biopsy. RADIATION DOSAGE (If Supplied By Facility): CTDIvol = ( 3.02 ) mGy, DLP = ( 95.91 ) mGycm TECHNIQUE: No contrast was administered. Low dose technique was utilized (average mAS-38 and kVp 120). 1.25 mm axial source images with a slice interval of 1.25-mm were reconstructed in lung windows. 2.5 mm axial source images with a slice interval of 2.5-mm were reconstructed in lung windows. 5.0 mm axial source images with a slice interval of 5.0-mm were reconstructed in soft tissue windows. COMPARISON: None. NODULES: Nodule #: 1 Density: Solid Lung location: Right upper lobe: 2.6 cm from pleura Location in series: Series Number: 2 Image: 56 Size - D1 x D2 mm: 1 x 1mm: 1 mm average diameter Margin: Smooth Shape: Round Calcification: No Fat: No Temporal comparison: None Nodule #: 2 Density: Solid Lung location: Right lower lobe: Along the oblique fissure. Location in series: Series Number: 2 Image: 103 Size - D1 x D2 mm: 0.7 x 0.6: 7 mm average diameter Margin: Irregular Shape: Oval Calcification: Yes Fat: No Temporal comparison: None Total lung nodules (excluding granulomas): 1 Emphysema: Mild emphysematous changes. There is linear scarring in the IV superior left upper lobe and lingula. Endobronchial lesion: None Aorta: Mild atherosclerotic changes. CORONARY ARTERIES: Coronary artery calcification Heart: Normal Pulmonary artery: Normal Mediastinal nodes: Paratracheal and precarinal lymph nodes. Other chest and abdominal findings: Degenerative changes of the thoracic spine. CT/Low Dose CT Lung Screening IMPRESSION: Lung-RADS category 2 - Continue annual screening with LDCT in 12 months. IMPORTANT NOTES FOR USE: ACR Lung-RADS Version 1.1 Assessment Categories Release Date: 2018 Category: Coded 0-4 bases on nodule(s) with highest degree of suspicion. Negative screen is defined as categories 1 and 2; a positive screen is defined as categories 3 and 4. Category 3 and 4A nodules that are unchanged on interval CT should be coded as category 2, and individuals returned to screening in 12 months. Category 4X: Category 3 or 4 nodules with additional imaging findings that increase the suspicion of lung cancer, such as spiculation, GGN that doubles in size in 1 year, enlarged lymph notes, etc. Category Modifiers: S (significant finding unrelated to lung cancer) Electronically Signed: Isael Valentin DO at 22:51 EST Reading Location ID and State: [address] [place] [address] Tel [phone], Service support ,
== END | disposition home or self-care (01) ==
LOC: CT 14:48
PROVIDERS: PCP Internal Medicine; Referring Provider Internal Medicine; Visit Provider Internal Medicine
DX: Z12.2 Encounter for screening for malignant neoplasm of respiratory organs (principal); I70.0 Atherosclerosis of aorta; I25.10 Atherosclerotic heart disease of native coronary artery without angina pectoris; Z87.891 Personal history of nicotine dependence; R91.8 Other nonspecific abnormal finding of lung field; R06.02 Shortness of breath
CPT/HCPCS: 71271